=== PATIENT | female | born 1970 | race Caucasian/White ===

== ENCOUNTER 2024-12-22 09:38 | Outpatient (REF) | payer MEDICAID, SELFPAY ==
--- OUTSIDE RECORDS SUMMARY | 2024-12-22 10:10 | XMS_ITS | Encounter Summary ---
Author Organization [facility] Address [address] [place] [address] Care Team Providers Care R&D Engineer Name Role Phone Devi Lo NP Primary Care Provider [phone] Reason for Visit * Reason Comments Med Refill Encounter Details Date Type Department Care Team (Late Contact Info) Description 11/06/2024 Refill [facility] [address] [place] [address] Palomo Jacobson MD [address] [place] [address] Vitamin D deficiency Social History Tobacco Use Types Packs/Day Years Used Date Smoking Tobacco: Never Assessed Comments Unknown Sex and Gender Information Value Date Recorded Sex Assigned at Female 08/06/2024 9:16 AM EDT Legal Sex Female 9:42 AM EDT Gender Identity Female 08/06/2024 9:16 AM EDT Sexual Orientation Straight 08/06/2024 9: 16 AM EDT documented as of this encounter Plan of Treatment Upcoming Encounters Date Type Department Care Team (Late Contact Info) Description 12/22/2024 11:15 AM EDT Office Visit [facility] [address] [place] [address] TarVangie turner, OD [address] [place] [address] documented as of this encounter Visit Diagnoses Diagnosis Vitamin D deficiency documented in this encounter Care Teams R&D Engineer Relationship Specialty Start Date End Date Devi Lo NP [address] [place] [address] PCP - General Family Medicine 12/19/24 documented as of this encounter
[2024-12-22 11:23] LABS: MANUAL DIFF FLAG NO
[2024-12-22 11:35] LABS: Hematocrit 35.6 % (37.0-47.0); Hemoglobin 11.4 g/dl (12.0-16.0); Imm Gran Abs Auto 0.02 X10*3/uL (0.00-0.03); Imm Gran Pct Auto 0.4 % (0.0-0.4); Lymphocytes Absolute Auto 1.5 X10*3/uL (1.2-4.9); Mean Corpuscular HGB Conc 32.0 g/dl (31.0-35.0); Mean Corpuscular Hemoglobin 29.6 pg (27.0-33.0); Mean Corpuscular Volume 92.5 fL (80.0-98.0); NRBC Abs Auto 0.000 X10*3/uL (0.0-0.012); NRBC Pct Auto 0.0 /100WBC (0.0-0.2); Platelet Count 225 X10*3/uL (160-400); Red Blood Count 3.85 X10*6/uL (4.20-5.50); White Blood Count 5.5 X10*3/uL (4.8-10.8)
[2024-12-22 11:39] LABS: B Type Natriuretic Peptide 59 pg/mL (<100)
[2024-12-22 12:08] LABS: Alanine Aminotransferase 15 U/L (0-31); Albumin Level 3.8 g/dL (3.5-5.0); Alkaline Phosphatase 70 U/L (39-117); Anion Gap 9 (12-20); Aspartate Amino Transferase 25 U/L (5-31); Blood Urea Nitrogen 18 mg/dL (9-16); Calcium 8.6 mg/dL (8.4-10.2); Carbon Dioxide 28 mmol/L (22-29); Chloride 111 mmol/L (96-108); Cholesterol 176 mg/dL (<200); Estimated Glomerular Filt Rate > 60; HDL Cholesterol 41 mg/dL (>40); Potassium 4.8 mmol/L (3.3-5.1); Sodium 143 mmol/L (135-145); Total Protein 6.6 g/dL (6.5-8.0); Triglycerides 63 mg/dL (<150)
[2024-12-22 12:24] LABS: Folate 9.8 ng/mL (> or = 4.0); Vitamin B12 294 pg/mL (200-900)
[2024-12-22 12:32] LABS: Hemoglobin A1C 103.0654 umol/L; Total Hemoglobin (HGBA1C) 3262.7305 umol/L
== END 2024-12-22 09:39 | disposition home or self-care (01) ==
LOC: HO.HHCL 09:38
PROVIDERS: PCP Nurse Practitioner Family; Visit Provider Nurse Practitioner Family
DX: Z00.00 Encounter for general adult medical examination without abnormal findings (principal); E66.01 Morbid (severe) obesity due to excess calories; R20.2 Paresthesia of skin; R60.0 Localized edema
CPT/HCPCS: 36415; 80053; 80061; 82607; 82746; 83036; 83880; 84443; 85025

== ENCOUNTER 2025-02-17 09:29 | Outpatient (REF) | payer MEDICAID, SELFPAY ==
--- OUTSIDE RECORDS SUMMARY | 2025-02-17 10:42 | XMS_ITS | Clinical Summary ---
Author Organization [employer] Address [address] [facility] [place] [address] Care Team Providers Care Assistant Teacher Name Role Phone JocelynDevi arnold MARJORIE Primary Care Provider [phone] Allergies Active Allergy Reactions Criticality Noted Date Comments Gabapentin Dizziness 08/21/2024 Also with tunnel vision Pregabalin Dizziness 08/21/2024 Also with tunnel vision Medications * This document contains information received from the source organization and may not represent a complete record from that organization. methocarbamol (Robaxin) 500 MG tabletIndications: Osteoarthritis of multiple joints, unspecified osteoarthritis type Take 1 tablet (500 mg) by mouth every 8 (eight) hours if needed for muscle spasms. 30 tablet 2 5 Active NIFEdipine (Procardia) 10 MG capsuleIndications :Raynaud's disease without gangrene TAKE 1 CAPSULE BY MOUTH AT BEDTIME 90 capsule 5 Active celecoxib (CeleBREX) 200 MG capsule Take 200 mg by mouth 2 times daily. Active DULoxetine (Cymbalta) [address] capsuleIndications :Fibromyalgia TAKE 1 CAPSULE BY MOUTH ONCE DAILY DO NOT BREAK, CRUSH, DISSOLVE OR CHEW 30 capsule 2 5 Active traZODone (Desyrel) 150 MG tabletIndications: Insomnia, unspecified type TAKE 1 TABLET BY MOUTH AT BEDTIME 30 tablet 2 5 Active Diclofenac Sodium 1 % gel APPLY 2 GRAMS TOPICALLY TO AFFECTED AREA(S) 4 TIMES A DAY IN THE MORNING, AT NOON, IN THE EVENING, AND AT BEDTIME 5 Active Active Problems Problem Noted Date Diagnosed Date Cannabis use disorder 12/25/2024 Morbid obesity (CMS/HCC) 12/19/2024 Dietary counseling 12/19/2024 Assessment & Plan (01/23/2025 2:03 PM EDT): Dietary Recommendations: Fruits, vegetables, whole grains, protein foods, and fat-free or low-fat dairy products are healthy choices. Eat different types of protein foods in your diet. This can include seafood, lean meats, poultry, beans, peas, lentils, nuts, seeds, soy products, and eggs. Limit foods and beverages higher in added sugars, saturated fat, and sodium. Exercise Recommendations: At least 150 minutes of moderate-intensity physical activity per week, or an equivalent combination of moderate- and vigorous-intensity activity Exercise counseling 12/19/2024 Housing instability 12/19/2024 Healthcare maintenance 12/19/2024 Localized edema 12/19/2024 Family history of thyroid disease 12/19/2024 Leg paresthesia 12/19/2024 Romberg test positive 12/19/2024 DJD (degenerative joint disease) of cervical spi ne 12/18/2024 Positive colorectal cancer screening using Colog uard test 12/19/2022 Bilateral leg pain 11/20/2022 Adhesive capsulitis of left shoulder 10/25/2020 Overview (12/18/2024): Last Assessment & Plan: Reviewed with pt probable rotator cuff tendonitis vs partial tear with some adhesive capsulitis beginning to develop. Injection done today, pt tolerated well. Reviewed post-injection care and encouraged to rest 1-2 days, then can begin resuming activities. Referral to PT placed and pt given list of locations to call and set up appointment starting in a few days. Continue NSAIDs, Tylenol PRN. As Zanaflex not helpful, will switch to Robaxin. Will see back in 6wk to reassess or sooner as needed. If sxs not improving, would get MRI of left shoulder to further evaluate. Medical marijuana use 05/17/2020 Overview (12/18/2024): Seen through pain management Benign lipomatous neoplasm of skin, subcu of rig ht leg 10/01/2019 Overview (12/18/2024): Last Assessment & Plan: Palpable, tender nodule in right leg consistent with lipoma. Discussed how with weight loss, may notice more nodules. Discussed benign, but if bothersome, can be removed. Will get U/S to confirm diagnosis and if continues to bother pt, will refer to general surgery for removal. Chronic bilateral low back pain with left-sided sciatica 07/31/2019 Overview (12/18/2024): Last Assessment & Plan: Continues to have low back pain, now sciatica mostly in LLE. No falls/injuries to her back. Pt has been doing PT exercises, naproxen, muscle relaxants with little relief. Pt intolerant to gabapentin and Lyrica. Will have pt resume Cymbalta (previously was on it for depression/anxiety) to help with mood as well as neuropathic pain. Referral to pain management placed per pt request. She would like to discuss medical marijuana; she admits to using marijuana often to help with her pain at this time. Hx of unilateral salpingectomy 11/22/2018 Generalized anxiety disorder 08/19/2018 Overview (12/18/2024): KATIA: Parth (8yo male Federico Martinez), UTD on vaccines Chronic pain of left knee 06/07/2018 Overview (12/18/2024): Last Assessment & Plan: Continue OTC analgesics, heat/ice PRN. Will refer for PT. Discussed with pt possibility sxs d/t progression of her OA vs meniscal cause. If sxs worsen/not improving, may consider further imaging vs referral to ortho. Rheumatoid arthritis involving multiple sites (C MS/HCC) 05/02/2018 Moderate episode of recurren t major depressive disorder (CMS/HCC) 12/09/2015 Overview (12/18/2024): Last Assessment & Plan: Psychological condition is suboptimally controlled. Referral to psychological counseling. Psychological condition will be reassessed in 4 weeks. Insomnia, persistent 11/25/2015 Overview (12/18/2024): Last Assessment & Plan: Discussed with pt her increased stress may be contributing to her insomnia, which in turn could be what is triggering her migraines. Will increase Trazodone to 150mg qhs. If sxs worsen/not improving, RTC. Iron deficiency anemia 01/06/2015 Overview (12/18/2024): Last Assessment & Plan: Due for repeat labs, ordered. Obesity 01/05/2015 Overview (12/18/2024): Last Assessment & Plan: Wt Readings from Last 3 Encounters: 10/01/19 96.2 kg (212 lb) 07/29/19 98.9 kg (218 lb) 03/03/19 (!) 104.2 kg (229 lb 12 oz) Pt congratulated on her weight loss. Continue to work on diet, physical activity. Seronegative rheumatoid arthritis (CMS/HCC) 12/12 Overview (12/18/2024): Diagnosed in 2013 by [facility], [facility] Rheum questions if correct diagnosis Raynaud's disease 10/19/2014 Overview (12/18/2024): Is followed by [facility] Dr Tomasa Colindres Last Assessment & Plan: Suspect some degree of orthostatic hypotension contributing to her dizziness on standing. BP today low-normal. Will have pt reduce total daily dose of nifedipine from 30mg to 20mg daily (will adjust from ER 30mg qd to IR 10mg BID). Discussed that if her Raynaud's worsens on decreased dose, to call office and would adjust back to prior dosing. Follow up with rheumatology as scheduled. GERD without esophagitis 05/25/2014 Degenerative disc disease, cervical 10/15/2013 Fibromyalgia 10/14/2013 Overview (12/18/2024): Last Assessment & Plan: Continues to have low back pain, now sciatica mostly in LLE. No falls/injuries to her back. Pt has been doing PT exercises, naproxen, muscle relaxants with little relief. Pt intolerant to gabapentin and Lyrica. Will have pt resume Cymbalta (previously was on it for depression/anxiety) to help with mood as well as neuropathic pain. Referral to pain management placed per pt request. She would like to discuss medical marijuana; she admits to using marijuana often to help with her pain at this time. Last Assessment & Plan: No improvement in muscle spasms with Flexeril, will try Zanaflex instead. If sxs worsen/not improving, RTC. Migraine with aura and witho ut status migrainosus, not intractable 10/14/2013 Overview (12/18/2024): Last Assessment & Plan: Toradol given in office today with improvement in headache. Pt hasn't seen neurology in some time, new referral placed. Stressed importance of following up with neurology given change in her migraines, but if develops sxs again similar to the , she needs to go to ED immediately for further evaluation. Vitamin D deficiency 10/14/2013 Overview (12/18/2024): Last Assessment & Plan: Will repeat your vitamin D level Resolved Problems Problem Noted Date Diagnosed Date Resolved Date Mild episode of recurrent ma anthony depressive disorder 08/19/2018 12/25/2024 Encounters * This document contains information received from the source organization and may not represent a complete record from that organization. Date Type Department Care Team Description 02/09/2025 Travel 12/26/2024 Telephone [facility] [address] [place] [address] Devi Lo NP nov recall 12/23/2024 Refill [facility] [address] [place] [address] Palomo Jacobson MD Insomnia, unspecified type 12/22/2024 11:15 AM EDT Office Visit [facility] [address] [place] [address] Vangie Blake, OD Presbyopia (Primary Dx); Cortical cataract of both eyes 12/22/2024 Travel 12/21/2024 Refill [facility] [address] [place] [address] Palomo Jacobson MD Fibromyalgia; Insomnia, unspecified type 12/19/2024 2:45 PM EDT Office Visit [facility] [address] [place] [address] Devi Lo NP Morbid obesity (CMS/HCC) (Primary Dx); Dietary counseling; Exercise counseling; Housing instability; Healthcare maintenance; Localized edema; Family history of thyroid disease; Leg paresthesia; Fibromyalgia; Migraine with aura and without status migrainosus, not intractable; Romberg test positive 12/19/2024 Travel 12/18/2024 Telephone [facility] [address] [place] [address] Joceline Johns MA Chart Prep 12/12/2024 Patient Outreach [facility] [address] [place], [place] [phone] Devi Lo NP Pre-visit Planning (SDOH negative, Tobacco screening negative.) from Last 3 Months Immunizations Immunization Administration Dates Next Due Influenza injectable quadriv alent preservative free 02/06/2022,05/17/2020,03/03/2019,2017,03/02/2017,07/14/2014 Tdap 10/20/2016,07/14/2014 Zoster, Recombinant 08/31/2023,02/13/2022 Social History Tobacco Use Types Packs/Day Years Used Date Smoking Tobacco: Never Smokeless Tobacco: Never Tobacco Cessation:Counseling Given: Not Answered Depression Answer Date Recorded Patient Health Questionnaire-9 Score 18 12/25/2024 Patient Health Questionnaire-9 Score 18 12/25/2024 Last PHQ-9: Questionnaire Data Not on file 0 12/25/2024 Housing Stability Answer Date Recorded What is your housing situation today? I do not have housing (Staying with others, in a hotel, in a intermediate, living outside on the street, on a beach, in a car, or in a park 12/12/[address] you li ve. Do you have problems with any of the following? None of the above 12/12/2024 Food Insecurity Answer Date Recorded Within the past 12 months, y ou worried that your food would run out before you got money to buy more: Often true 2024 Within the past 12 months,th e food you bought just didn't last and you didn't have enough money to get more: Sometimes True 12/19/2024 Transportation Answer Date Recorded In the past 12 months, has l ack of transportation kept you from medical appts, meetings, work or from getting things needed for daily living? No 12/12/2024 Utilities Answer Date Recorded In the past 12 months, has t he electric, gas, oil or water company threatened to shut off services in your home? Already shut Off 12/19/2024 Depression Answer Date Recorded Patient Health Questionnaire-2 Score 2 12/25/2024 Internet Access Answer Date Recorded Internet Access Q1 Yes 12/12/2024 Internet Access Q2 Not on file 12/12/2024 Comments Unknown Sex and Gender Information Value Date Recorded Sex Assigned at Female 08/06/2024 9:16 AM EDT Legal Sex Female 9:42 AM EDT Gender Identity Female 08/06/2024 9:16 AM EDT Sexual Orientation Straight 08/06/2024 9: 16 AM EDT Last Filed Vital Signs Vital Sign Reading Time Taken Comments Blood Pressure 128/78 12/19/2024 2:46 PM EDT Pulse 87 12/19/2024 2:46 PM EDT Temperature 35.6 C (96 F) 12/19/2024 2:46 PM EDT Respiratory Rate 18 12/19/2024 2:46 PM EDT Oxygen Saturation 97% 12/19/2024 2:46 PM EDT Inhaled Oxygen Concentration - - Weight 104 kg (228 lb 9.6 oz) 12/19/2024 2:46 PM EDT Height 160 cm (5' 3 ) 12/19/2024 2:46 PM EDT Body Mass Index 40.49 12/19/2024 2:46 PM EDT Plan of Treatment Upcoming Encounters Date Type Department Care Team (Late st Contact Info) Description 03/24/2025 11:30 AM EST Office Visit [facility] [address] [place] [address] Devi Lo NP [address] [place] [address] Health Maintenance Due Date Last Done Comments CT Colonography 1971 Colonoscopy 1971 FIT 1971 HIV Screening 1971 Sigmoidoscopy 1971 Hepatitis C Screening 10/04/1989 Hepatitis B Vaccines (1 of 3 - 19+ 3-dose series) 10/04/1990 Mammogram 2011 Pneumococcal Vaccine: 50+ Years (1 of 1 - PCV) 10/04/2021 FOBT 12/03/2023 12/02/2022 COVID-19 Vaccine (2 - season) 2025 08/31/2023 Influenza Vaccine (#1) 2025 , 05/17/2020, 03/03/2019, Additional history exists Depression Monitoring 06/27/2025 12/25/2024, 025 Colorectal Cancer Screening 12/02/2025 FIT DNA/Cologuard 12/02/2025 12/02/2022 SDOH Screening 12/12/2025 12/12/2024 Alcohol/Substance Use Screening 12/19/2025 12/19/2024 Tobacco Screening 12/22/2025 12/22/2024 Disability Screening 02/09/2026 02/09/2025 DTaP/Tdap/Td Vaccines (3 - Td or Tdap) 10/20/2026 10/20/2016, 07/14/2014 Lipid Panel 12/22/2029 12/22/2024 RSV Patients and Patients Aged 60 years or older (1 - 1-dose 75+ series) 10/04/2046 Zoster Vaccines Completed 08/31/2023, 02/13/2022 HIB Vaccines Aged Out No longer eligi ble based on patient's age to complete this topic HPV Vaccines Aged Out No longer eligi ble based on patient's age to complete this topic Hepatitis A Vaccines Aged Out No long er eligible based on patient's age to complete this topic IPV Vaccines Aged Out No longer eligi ble based on patient's age to complete this topic Meningococcal B Vaccine Aged Out No l onger eligible based on patient's age to complete this topic Meningococcal Vaccine Aged Out No mildred bhaskar eligible based on patient's age to complete this topic RSV under 20 months Aged Out No longe r eligible based on patient's age to complete this topic Rotavirus Vaccines Aged Out No longer eligible based on patient's age to complete this topic Procedures Procedure Name Priority Date/Time Associated Diagnosis Comments LIPID PANEL, STANDARD Routine 12/22/2024 9:45 AM EDT Healthcare maintenance TSH W/REFLEX TO FT4 Routine 12/22/2024 9 :45 AM EDT Healthcare maintenance VITAMIN B12/FOLATE, SERUM PANEL Routine 12/22/2024 9:45 AM EDT Healthcare maintenance B TYPE NATRIURETIC PEPTIDE (BNP) Routine 12/22/2024 9:45 AM EDT Localized edema CBC WITH AUTO DIFFERENTIAL Routine 12/22/2024 9:45 AM EDT Leg paresthesia COMPREHENSIVE METABOLIC PANEL Routine 12/22/2024 9:45 AM EDT Leg paresthesia HEMOGLOBIN A1C Routine 12/22/2024 8:45 AM EDT Morbid obesity (CMS/HCC) from Last 3 Months Results * Vitamin B12/Folate, Serum Panel (12/22/2024 9:45 AM EDT) Vitamin B12 294 200 - 900 pg/mL [facility] Comment:NORMAL 200-900 PG/ML INDETERMINATE 160-199 PG/ML DEFICIENT < 160 PG/ML Folate 9.8 > or = 4.0 ng/mL [facility] Comment:Reference Values:> o r = 4.0 ng/mL< 4.0 ng/mL suggests folate deficiency Methotrexate, aminopterin and folinic acid(leucovorin) are chemotherapeutic agents whose molecularstructures are similar to folate; therefore, the Architectfolate assay cannot be used for patients using these drugs. Blood Venous blood specimen / Unknown 12/22/2024 9:45 AM EDT 12/22/2024 11:22 AM EDT us Devi Lo RN UTILIZATION MANAGEMENT [facility] LAB BLOOD ORDERABLES Final Resul t [facility] [address] [place] [address] [phone] * TSH W/Reflex to FT4 (12/22/2024 9:45 AM EDT) TSH reflex Free T4 1.77 0.32 - 4.0 uIU/mL [facility] Blood Venous blood specimen / Unknown 12/22/2024 9:45 AM EDT 12/22/2024 11:22 AM EDT us Devi Lo RN UTILIZATION MANAGEMENT UM LAB BLOOD ORDERABLES Final Resul t [facility] [address] [place] [phone] [phone] * (ABNORMAL) CBC auto differential (12/22/2024 9:45 AM EDT) White Blood Count 5.5 4.8 - 10.8 X10*3/uL [facility] Red Blood Count 3.85(L) 4.20 - 5.50 X10*6/uL [facility] Hemoglobin 11.4(L) 12.0 - 16.0 g/dl [facility] Hematocrit 35.6(L) 37.0 - 47.0 % [facility] Mean Corpuscular Volume 92.5 80.0 - 98.0 fL [facility] Mean Corpuscular Hemoglobin 29.6 27.0 - 33.0 pg [facility] Mean Corpuscular HGB Conc 32.0 31.0 - 35.0 g/dl [facility] Red Cell Distribution Width 13.5 11.0 - 16.0 % [facility] Platelet Count 225 160 - 400 X10*3/uL [facility] Mean Platelet Volume 10.9 9.4 - 12.3 fL [facility] Neutrophils Percent Auto 55.1 45 - 73 % [facility] Imm Gran Pct Auto 0.4 0.0 - 0.4 % [facility] Lymphocytes Percent Auto 26.5 20 - 40 % [facility] Monocytes Percent Auto 8.2 2 - 11 % [facility] Eosinophils Percent Auto 9.3(H) 0 - 4 % [facility] Basophils Percent Auto 0.5 0 - 2 % [facility] NRBC Pct Auto 0.0 0.0 - 0.2 /100WBC [facility] Neutrophils Absolute Auto 3.0 2.0 - 8.3 x10*3/uL [facility] Imm Gran Abs Auto 0.02 0.00 - 0.03 X10*3/uL [facility] Lymphocytes Absolute Auto 1.5 1.2 - 4.9 X10*3/uL [facility] Monocytes Absolute Auto 0.5 0.1 - 1.2 X10*3/uL [facility] Eosinophils Absolute Auto 0.5(H) 0.0 - 0.4 X10*3/uL [facility] Basophils Absolute Auto 0.0 0.0 - 0.2 X10*3/uL [facility] NRBC Abs Auto 0.000 0.0 - 0.012 X10*3/uL [facility] Blood Venous blood specimen / Unknown 12/22/2024 9:45 AM EDT 12/22/2024 11:18 AM EDT us Devi Lo RN UTILIZATION MANAGEMENT UM LAB BLOOD ORDERABLES Final Resul t Performing Organization Address [facility]/ZIP Co de Phone Number [facility] [address] [place] [phone] * B Type Natriuretic Peptide (BNP) (12/22/2024 9:45 AM EDT) B Type Natriuretic Peptide 59 <100 pg/mL [facility] Blood Venous blood specimen / Unknown 12/22/2024 9:45 AM EDT 12/22/2024 11:08 AM EDT us Devi Lo RN UTILIZATION MANAGEMENT UM LAB BLOOD ORDERABLES Final Resul t Performing Organization Address City/[facility] Co de Phone Number [facility] [address] [place] [phone] * (ABNORMAL) Lipid Panel, Standard (12/22/2024 9:45 AM EDT) Triglycerides 63 <150 mg/dL [facility] Comment:Desirable Triglyceri de: less than 150 mg/dLBorderline High Triglyceride 150-199 mg/dLHigh Triglyceride: 200-499 mg/dLVery High Triglyceride: greater than or equal to 5OO mg/dL Cholesterol 176 <200 mg/dL [facility] Comment:Desirable Cholestero l: less than 200 mg/dLBorderline High Cholesterol: 200-239 mg/dLHigh Cholesterol: greater than 239 mg/dL LDL Cholesterol Calculated 123(H) <100 mg/dL [facility] Comment:Desirable LDL: less than 100 mg/dLNear Optimal/Above Optimal LDL: 110- 129 mg/dLBorderline High LDL: 130-159 mg/dLHigh LDL: 160-189 mg/dLVery High LDL: greater than or equal to 190 mg/dL HDL Cholesterol 41 >40 mg/dL [facility] Comment:Desirable HDL: great er than 40 mg/dL Note: This HDL assay may give artificially low results in patients with liver disease. Blood Venous blood specimen / Unknown 12/22/2024 9:45 AM EDT 12/22/2024 11:22 AM EDT us Devi Lo RN UTILIZATION MANAGEMENT UM LAB BLOOD ORDERABLES Final Resul t [facility] [address] [place] [phone] * (ABNORMAL) Comprehensive Metabolic Panel (12/22/2024 9:45 AM EDT) Sodium 143 135 - 145 mmol/L [facility] Potassium 4.8 3.3 - 5.1 mmol/L [facility] Chloride 111(H) 96 - 108 mmol/L [facility] Carbon Dioxide 28 22 - 29 mmol/L [facility] Anion Gap 9(L) 12 - 20 [facility] Urea Nitrogen (BUN) 18(H) 9 - 16 mg/dL [facility] Creatinine, Serum 0.88 0.5 - 1.4 mg/dL [facility] Estimated Glomerular Filt Rate >60 [facility] Comment:Chronic Kidney Disea se: Estimated GFR < 60 mL/min/1.09c2Liplqk Kidney Disease: Estimated GFR < 15 mL/min/1.73m2 Glucose 86 60 - 115 mg/dL [facility] Calcium 8.6 8.4 - 10.2 mg/dL [facility] Bilirubin, Total 0.3 0.0 - 1.0 mg/dL [facility] Aspartate Amino Transferase 25 5 - 31 U/L [facility] Alanine Aminotransferase 15 0 - 31 U/L [facility] Total Protein 6.6 6.5 - 8.0 g/dL [facility] Albumin Level 3.8 3.5 - 5.0 g/dL [facility] Alkaline Phosphatase 70 39 - 117 U/L [facility] Blood Venous blood specimen / Unknown 12/22/2024 9:45 AM EDT 12/22/2024 11:22 AM EDT Devi Lo RN UTILIZATION MANAGEMENT UM LAB BLOOD ORDERABLES Final Resul t Performing Organization Address [facility] Co de Phone Number [facility] [address] [place] [phone] * Hemoglobin A1c (12/22/2024 8:45 AM EDT) Hemoglobin A1c 5.0 <6.0 % [facility] Comment:Hemoglobin A1C Refer ence Range Adults: 4.8 - 6.0 % Non diabetic: < 6.0 % Goal: < 7.0 %Additional Action Suggested: > 8.0 %Note: Hemoglobin A1c results are invalid for patients with abnormal amounts of HbF. Blood transfusions may impact the HbA1c concentration in the patient sample. Estimated Average Glucose 97 mg/dL [facility] Comment:eAG = Estimated ave rage glucose which is %A1C expressed asaverage glucose, using the formula of the [id number]-[id number] Glucose study (ADAG), Diabetes Care, Vol.31,#8,Dec. 2007 Blood Venous blood specimen / Unknown 12/22/2024 8:45 AM EDT 12/22/2024 11:18 AM EDT Devi Lo RN UTILIZATION MANAGEMENT UM LAB BLOOD ORDERABLES Final Resul t Performing Organization Address City/[facility] Co de Phone Number [facility] [address] [place] [phone] [phone] from Last 3 Months Insurance [facility] C3 Care Teams Assistant Teacher Relationship Specialty Start Date End Date Devi Lo NP [address] [place] [phone] PCP - General Family Medicine 12/19/24
--- OUTSIDE RECORDS SUMMARY | 2025-02-17 10:42 | XMS_ITS | Encounter Summary ---
Author Organization [employer] [facility] Address [address] [facility] [address] [place] [id number] Care Team Providers Care Card Room Manager Name Role Phone Devi Lo NP Primary Care Provider [phone] Reason for Visit * Reason Comments Med Refill Encounter Details Date Type Department Care Team (Late Contact Info) Description 11/06/[address] [facility] [address] [place] [phone] Palomo Jacobson MD [address] [place] [phone] Vitamin D deficiency Social History Tobacco Use [...] Department Care Team (Late Contact Info) Description 03/24/2025 11:30 AM EST Office Visit [facility] [address] [place] [phone] Devi Lo NP [address] [place] [phone] documented as of this encounter Visit Diagnoses Diagnosis Vitamin D deficiency documented in this encounter Care Teams Card Room Manager Relationship Specialty Start Date End Date Devi Lo NP [address] [place] [phone] PCP - General Family Medicine 12/19/24 documented as of this encounter
--- OUTSIDE RECORDS SUMMARY | 2025-02-17 10:42 | XMS_ITS | Encounter Summary ---
Author Organization [employer] Address [address] [place] [address] Care Team Providers Care Grinder Hardboard Name Role Phone JocelynDevi arnold MARJORIE Primary Care Provider [phone] Reason for Visit * Reason Onset Date Comments Med Refill 12/23/2024 Encounter Details Date Type Department Care Team ([facility] st Contact Info) Description 12/23/[address] [facility] [address] [place] [address] Palomo Jacobson MD [address] [place] [address] Insomnia, unspecified type Social History Tobacco Use Types Packs/Day Years Used Date Smoking Tobacco: Never Smokeless Tobacco: Never Depression Answer Date Recorded Patient Health Questionnaire-9 Score 18 12/25/2024 Patient Health Questionnaire-9 Score 18 12/25/2024 Last PHQ-9: Questionnaire Data Not on file 0 12/25/2024 Housing Stability Answer Date Recorded What is your housing situation today? I do not have housing (Staying with others, in a hotel, in a jail, living outside on the street, on a [...] AM EDT documented as of this encounter Functional Status * Over the past 2 weeks, how often have you been bothered by any of the following problems? Question Answer Date of Assessment Author Patient Health Questionnaire-2 Score 2 12/12 9:24 AM EDT Janina Chen * Little interest or pleasure in doing things Answer Date of Assessment Author Several days 12/25/2024 9:24 AM EDT Tapan Chen * Feeling down, depressed, or hopeless Answer Date of Assessment Author Several days 12/25/2024 9:24 AM EDT Tapan Chen * Trouble falling or staying asleep, or sleeping too much Answer Date of Assessment Author Nearly every day 12/25/2024 9:24 AM EDT Janina Chen * Feeling tired or having little energy Answer Date of Assessment Author More than half the days 12/25/2024 9:24 AM EDT Janina Velasquez * Poor appetite or overeating Answer Date of Assessment Author Nearly every day 12/25/2024 9:24 AM EDT Janina Chen * Feeling bad about yourself - or that you are a failure or have let yourself or your family down Answer Date of Assessment Author Nearly every day 12/25/2024 9:24 AM EDT Janina Chen * Trouble concentrating on things, such as reading the newspaper or watching television Answer Date of Assessment Author Nearly every day 12/25/2024 9:24 AM EDT Janina Chen * Moving or speaking so slowly that other people could have noticed? Or the opposite - being so fidgety or restless that you have been moving around a lot more than usual. Answer Date of Assessment Author More than half the days 12/25/2024 9:24 AM EDT Janina Velasquez * Thoughts that you would be better off or hurting yourself in some way Answer Date of Assessment Author Not at all 12/25/2024 9:24 AM EDT Tapan Chen * Patient Health Questionnaire-9 Score Answer Date of Assessment Author 18 12/25/2024 9:24 AM EDT Tapan Chen * How difficult have these problems made it for you to do your work, take care of things at home, or get along with other people? Answer Date of Assessment Author Extremely difficult 12/25/2024 9:24 AM EDT Janina Campuzano * Over the last 2 weeks, how often have you been bothered by any of the following problems? Question Answer Date of Assessment Author Feeling nervous, anxious, or on edge 3 12/12 9:25 AM EDT Janina Chen Not being able to stop or co ntrol worrying 3 12/25/2024 9:25 AM Janina Dove Worrying too much about diff erent things 3 12/25/2024 9:25 AM [facility] Janina Chen Trouble relaxing 3 12/25/2024 9:25 AM [facility] Janina Velasquez Being so restless that it is hard to sit still 3 12/25/2024 9:25 AM Janina Dove Becoming easily annoyed or irritable 3 12/12 9:25 AM EDT Janina Chen Feeling afraid as if somethi ng awful might happen 3 12/25/2024 9:25 AM Janina Dove RONNY-7 Total Score 21 12/25/2024 9:25 AM Janina Dove documented as of this encounter Plan of Treatment Upcoming Encounters Date Type Department Care Team (Late st Contact Info) Description 03/24/2025 11:30 AM EST Office Visit [facility] [address] [place] [address] Devi Lo NP [address] [place] [address] documented as of this encounter Visit Diagnoses Diagnosis Insomnia, unspecified type documented in this encounter Additional Health Concerns Assessment Noted Time PHQ-9 Depression Total Score: 12 025 3:43 PM EDT documented as of this encounter Care Teams Grinder Hardboard Relationship Specialty Start Date End Date Devi Lo NP [address] [place] [address] PCP - General Family Medicine 12/19/24 documented as of this encounter
== END 2025-02-17 09:30 | disposition home or self-care (01) ==
LOC: HO.MAMMO 09:29
PROVIDERS: PCP Nurse Practitioner Family; Visit Provider Nurse Practitioner Family
DX: Z12.31 Encounter for screening mammogram for malignant neoplasm of breast (principal)
CPT/HCPCS: 77063; 77067

== ENCOUNTER → 2025-02-17 10:00 | Outpatient (BNV) | payer MEDICAID, SELFPAY | PROVIDERS: PCP Nurse Practitioner Family; Visit Provider Internal Medicine | DX: Z12.31 Encounter for screening mammogram for malignant neoplasm of breast (principal) | CPT/HCPCS: 77063; 77067 ==